=== PATIENT | female | born 1975 | race Caucasian/White ===

== ENCOUNTER → 2018-05-18 15:05 | Outpatient (CLI) | payer OTHER | END | disposition home or self-care (01) | LOC: D.CT 15:05 | DX: R93.89 Abnormal findings on diagnostic imaging of other specified body structures (principal) ==

== ENCOUNTER 2018-10-13 09:00 | Outpatient (CLI) | payer OTHER | END 2018-10-13 10:00 | disposition home or self-care (01) | LOC: D.MAMMO 09:00 | PROVIDERS: ATTEND Nurse Practitioner Family | DX: Z12.31 Encounter for screening mammogram for malignant neoplasm of breast (principal) ==